=== PATIENT | male | born 1950 | race Native Hawaiian/Other Pacific Islander ===

== ENCOUNTER 2016-12-02 06:47 | Day surgery (SDC) | payer OTHER ==
[~2016-12-02] VITALS: Ht 30.5 cm; Wt 0.5 kg
== END 2016-12-02 08:55 | disposition home or self-care (01) ==
LOC: OR 06:47
PROC: 08RJ3JZ Replacement of Right Lens with Synthetic Substitute, Percutaneous Approach (ICD-10-PCS; principal; 2016-12-02)
PROC: 089230Z Drainage of Right Anterior Chamber with Drainage Device, Percutaneous Approach (ICD-10-PCS; 2016-12-02)
DX: H25.811 Combined forms of age-related cataract, right eye (principal); H40.1112 Primary open-angle glaucoma, right eye, moderate stage
CPT/HCPCS: 0191T; 66984; J0171; V2632

== ENCOUNTER 2016-12-30 06:47 | Day surgery (SDC) | payer OTHER | END 2016-12-30 09:30 | disposition home or self-care (01) | LOC: OR 06:47 | PROC: 08RK3JZ Replacement of Left Lens with Synthetic Substitute, Percutaneous Approach (ICD-10-PCS; principal; 2016-12-30) | PROC: 089330Z Drainage of Left Anterior Chamber with Drainage Device, Percutaneous Approach (ICD-10-PCS; 2016-12-30) | DX: H25.812 Combined forms of age-related cataract, left eye (principal); H40.1122 Primary open-angle glaucoma, left eye, moderate stage | CPT/HCPCS: 0191T; 66984; J0171; V2632 ==

== ENCOUNTER 2017-01-30 08:26 | Outpatient (CLI) | payer OTHER ==
[2017-01-30 09:35] LABS: POTASSIUM 4.3 mmol/L (3.6-5.2); SODIUM 138 mmol/L (136-145)
[2017-01-30 09:46] LABS: PLATELET COUNT 171 K/uL (142-355)
== END 2017-01-30 19:06 | disposition home or self-care (01) ==
LOC: LABW 08:26
PROVIDERS: Physician Assistant
DX: E78.00 Pure hypercholesterolemia, unspecified (principal); I10 Essential (primary) hypertension; Z85.46 Personal history of malignant neoplasm of prostate; M54.5 Low back pain
CPT/HCPCS: 36415; 80053; 80061; 82607; 84153; 84439; 84443; 85027

== ENCOUNTER 2017-10-06 08:19 | Outpatient (CLI) | payer OTHER ==
[2017-10-06 08:34] LABS: PLATELET COUNT 168 K/uL (142-355)
[2017-10-06 09:34] LABS: SODIUM 138 mmol/L (136-145)
== END 2017-10-06 09:20 | disposition home or self-care (01) ==
LOC: LABW 08:19
PROVIDERS: Physician Assistant
DX: E78.00 Pure hypercholesterolemia, unspecified (principal); D51.0 Vitamin B12 deficiency anemia due to intrinsic factor deficiency; I10 Essential (primary) hypertension
CPT/HCPCS: 36415; 80053; 80061; 82607; 84439; 84443; 85027; 85651

== ENCOUNTER 2018-10-14 08:33 | Outpatient (CLI) | payer OTHER ==
[2018-10-14 09:00] LABS: PLATELET COUNT 154 K/uL (142-355)
[2018-10-14 09:27] LABS: POTASSIUM 4.1 mmol/L (3.6-5.2)
== END 2018-10-14 19:35 | disposition home or self-care (01) ==
LOC: LABW 08:33
PROVIDERS: Physician Assistant
DX: Z00.00 Encounter for general adult medical examination without abnormal findings (principal); D51.0 Vitamin B12 deficiency anemia due to intrinsic factor deficiency; I10 Essential (primary) hypertension; Z79.899 Other long term (current) drug therapy; E78.00 Pure hypercholesterolemia, unspecified
CPT/HCPCS: 36415; 80053; 80061; 83036; 84439; 84443; 85027

== ENCOUNTER 2018-10-22 09:00 | Outpatient (CLI) | payer OTHER | END 2018-10-22 19:22 | disposition home or self-care (01) | LOC: US 09:00 | DX: Z13.6 Encounter for screening for cardiovascular disorders (principal) ==

== ENCOUNTER 2019-04-20 07:41 | Outpatient (CLI) | payer OTHER | END 2019-04-20 20:28 | disposition home or self-care (01) | LOC: MRI 07:41 | DX: R25.8 Other abnormal involuntary movements (principal) | CPT/HCPCS: 36415; 82565; 84520; A9576 ==

== ENCOUNTER 2019-10-12 08:45 | Outpatient (CLI) | payer OTHER ==
[2019-10-12 09:47] LABS: POTASSIUM 4.4 mmol/L (3.6-5.2); SODIUM 143 mmol/L (136-145)
[2019-10-12 09:55] LABS: PLATELET COUNT 162 K/uL (142-355)
== END 2019-10-12 22:25 | disposition home or self-care (01) ==
LOC: LABW 08:45
PROVIDERS: Physician Assistant
DX: Z00.00 Encounter for general adult medical examination without abnormal findings (principal); E78.00 Pure hypercholesterolemia, unspecified; D51.0 Vitamin B12 deficiency anemia due to intrinsic factor deficiency; Z85.46 Personal history of malignant neoplasm of prostate
CPT/HCPCS: 36415; 80053; 80061; 84153; 84443; 85027

== ENCOUNTER 2020-07-18 11:52 | Emergency (ER) | payer OTHER ==
[~2020-07-18] VITALS: Ht 180.3 cm; Wt 93.0 kg
[2020-07-18 12:00] VITALS: TEMP 99.1
[2020-07-18 12:53] LABS: PLATELET COUNT 169 K/uL (142-355)
[2020-07-18 13:03] LABS: POTASSIUM 3.9 mmol/L (3.6-5.2); SODIUM 139 mmol/L (136-145)
[2020-07-18 14:43] VITALS: BP 141/76
== END 2020-07-18 14:47 | disposition home or self-care (01) ==
LOC: ED 11:52
PROVIDERS: Family Medicine
DX: I10 Essential (primary) hypertension (principal)
CPT/HCPCS: 36415; 80053; 81000; 84484; 85027; 93005; 99283

== ENCOUNTER 2020-09-20 09:48 | Emergency (ER) | payer OTHER ==
[~2020-09-20] VITALS: Ht 180.3 cm; Wt 93.0 kg
[2020-09-20 09:56] VITALS: TEMP 98.5
[2020-09-20 10:55] LABS: POTASSIUM 3.9 mmol/L (3.6-5.2); SODIUM 140 mmol/L (136-145)
[2020-09-20 11:21] LABS: PLATELET COUNT 150 K/uL (142-355)
[2020-09-20 12:47] VITALS: BP 174/102
== END 2020-09-20 12:55 | disposition home or self-care (01) ==
LOC: ED 09:48
PROVIDERS: Family Medicine
DX: I10 Essential (primary) hypertension (principal)
CPT/HCPCS: 80053; 81000; 82550; 82553; 83605; 83880; 84484; 85027; 93005; 99283

== ENCOUNTER 2020-10-16 10:20 | Outpatient (CLI) | payer OTHER ==
[2020-10-16 10:51] LABS: PLATELET COUNT 166 K/uL (142-355)
[2020-10-16 11:11] LABS: POTASSIUM 4.6 mmol/L (3.6-5.2)
== END 2020-10-16 19:06 | disposition home or self-care (01) ==
LOC: LABW 10:20
PROVIDERS: ATTEND Internal Medicine
DX: Z00.00 Encounter for general adult medical examination without abnormal findings (principal); Z79.899 Other long term (current) drug therapy
CPT/HCPCS: 36415; 80053; 80061; 82306; 84439; 84443; 85027

== ENCOUNTER 2020-10-23 13:03 | Outpatient (CLI) | payer OTHER | END 2020-10-23 22:15 | disposition home or self-care (01) | LOC: RESP 13:03 | PROVIDERS: ATTEND Specialist | DX: I10 Essential (primary) hypertension (principal) ==

== ENCOUNTER 2021-04-04 08:22 | Outpatient (CLI) | payer OTHER | END 2021-04-04 20:39 | disposition home or self-care (01) | LOC: LABW 08:22 | PROVIDERS: ATTEND Nurse Practitioner Adult Health | DX: E78.2 Mixed hyperlipidemia (principal); Z79.899 Other long term (current) drug therapy | CPT/HCPCS: 36415; 80061; 80076 ==

== ENCOUNTER 2021-06-27 10:07 | Outpatient (CLI) | payer OTHER | END 2021-06-27 21:00 | disposition home or self-care (01) | LOC: MRI 10:07 | PROVIDERS: ATTEND Psychiatry & Neurology Neurology | DX: G20 Parkinson's disease (principal) ==

== ENCOUNTER 2022-06-06 09:30 | Outpatient (CLI) | payer OTHER | END 2022-06-06 19:05 | disposition home or self-care (01) | LOC: LABW 09:30 | PROVIDERS: ATTEND Nurse Practitioner | DX: E78.2 Mixed hyperlipidemia (principal) | CPT/HCPCS: 36415; 80061; 80076 ==